=== PATIENT | female | born 1960 | race Caucasian/White ===

== ENCOUNTER 2020-08-28 12:06 | Emergency (ER) | payer OTHER ==
[~2020-08-28] VITALS: Ht 172.7 cm; Wt 64.0 kg
--- NOTE | 2020-08-28 12:06 | NUR ---
PT BIBRA 89 C/O R SHOULDER INJURY AND L MIDDLE FINGER POSS DISLOCATION. PT IS AAOX4, NOT IN RESPIRATORY DISTRESS, V/S STABLE, KEPT RESTED AND COMFORTABLE. WILL CONTINUE TO MONITOR.
--- NOTE | 2020-08-28 12:14 | NUR ---
SEEN AND EXAMINED BY .
[2020-08-28] MEDS ORDERED: LIDOCAINE /MPF 1% VIAL 5 ML VIAL ONE (12:19)
[2020-08-28] MEDS ORDERED: TDAP [DIPH/PERTUSSIS/TET] 0.5 ML VIAL IM ONE ×2 (12:20→12:30)
[2020-08-28] MEDS ORDERED: IBUPROFEN 600 MG TABLET ONE (12:20)
--- NOTE | 2020-08-28 12:23 | NUR ---
DEVELOPMENT TECHNOLOGIST AT BEDSIDE FOR XRAY.
[2020-08-28] MEDS ORDERED: IBUPROFEN 600 MG TABLET PO ONE (12:30)
--- NOTE | 2020-08-28 13:59 | NUR ---
Patient discharged to home in stable condition. Written and verbal after care instructions given. Patient verbalizes understanding of instruction.
[2020-08-28 14:00] VITALS: BP 125/64
== END 2020-08-28 14:00 | disposition home or self-care (01) ==
LOC: ER 12:08
DX: S62.633A Displaced fracture of distal phalanx of left middle finger, initial encounter for closed fracture (principal); S40.211A Abrasion of right shoulder, initial encounter; S80.212A Abrasion, left knee, initial encounter; S80.211A Abrasion, right knee, initial encounter; S60.418A Abrasion of other finger, initial encounter; Z88.5 Allergy status to narcotic agent; V23.4XXA Motorcycle driver injured in collision with car, pick-up truck or van in traffic accident, initial encounter; Y93.89 Activity, other specified; Y92.413 State road as the place of occurrence of the external cause; Y99.8 Other external cause status
CPT/HCPCS: 26742; 71045; 73010; 73030; 73130; 73140 ×2; 90471; 90715; 99284; J3490